=== PATIENT | male | born 1975 | race Caucasian/White ===

== ENCOUNTER → 2017-08-20 | Outpatient (CLI) | payer BC | LOC: PT 08:51 | DX: Z01.818 Encounter for other preprocedural examination (principal); M25.552 Pain in left hip ==

== ENCOUNTER 2017-11-11 16:00 | Outpatient (RCR) | payer BC | END 2017-11-25 | disposition home or self-care (01) | LOC: PT | DX: Z47.89 Encounter for other orthopedic aftercare (principal) ==

== ENCOUNTER 2018-05-20 08:30 | Outpatient (RCR) | payer BC | END 2018-05-20 09:00 | disposition home or self-care (01) | LOC: PT 08:30 | DX: S73.102D Unspecified sprain of left hip, subsequent encounter (principal) ==

== ENCOUNTER 2019-01-13 15:00 | Outpatient (RCR) | payer BC | END 2019-01-31 | disposition still patient (30) | LOC: PT | DX: M16.52 Unilateral post-traumatic osteoarthritis, left hip (principal) ==

== ENCOUNTER → 2019-08-11 | Outpatient (CLI) | payer OTHER ==
[2019-08-11 17:30] LABS: ALBUMIN 4.5 g/dL (3.5-5.0); POTASSIUM 4.5 mmol/L (3.5-5.1)
[2019-08-11 17:31] LABS: CALCIUM 9.6 mg/dL (8.3-10.5)
[2019-08-11 17:33] LABS: TOTAL PROTEIN 8.2 g/dL (6.4-8.3)
[2019-08-11 17:34] LABS: TOTAL BILIRUBIN 0.3 mg/dL (0.2-1.2)
[2019-08-11 17:43] LABS: EOS # 0.1 (0.04-0.40); HEMATOCRIT 45.5 % (42.0-52.0); HEMOGLOBIN 15.3 g/dL (13.5-18.0); LYMPH# 2.8 (1.50-4.00); MEAN CELL VOLUME 91 fl (78-100); MEAN CORPUSCULAR HEMOGLOBIN 31 pg (27-31); MEAN CORPUSCULAR HGB CONC 34 g/dL (33-37); MEAN PLATELET VOLUME 9.5 fl (7.4-10.4); NEU # 6.2 (1.40-6.50); PLATELET COUNT 345 K/mm3 (130-400); RED BLOOD COUNT 5.01 M/mm3 (4.20-5.60); RED CELL DISTRIBUTION WIDTH 13.4 % (11.5-14.5); WHITE BLOOD COUNT 10.1 K/mm3 (4.8-10.8)
== END ==
LOC: LAB 17:08
PROVIDERS: Family Medicine
DX: Z13.220 Encounter for screening for lipoid disorders (principal); M06.9 Rheumatoid arthritis, unspecified; I10 Essential (primary) hypertension

== ENCOUNTER → 2020-01-02 | Outpatient (CLI) | payer OTHER | LOC: RAD 14:10 | DX: R06.00 Dyspnea, unspecified (principal) ==

== ENCOUNTER → 2020-02-21 | Outpatient (CLI) | payer OTHER | LOC: RAD 12:51 | DX: M51.36 Other intervertebral disc degeneration, lumbar region (principal); M43.16 Spondylolisthesis, lumbar region; M47.816 Spondylosis without myelopathy or radiculopathy, lumbar region ==

== ENCOUNTER 2020-05-22 10:42 | Emergency (ER) | payer OTHER ==
[~2020-05-22] VITALS: Ht 172.7 cm; Wt 102.3 kg
[2020-05-22] MEDS ORDERED: CEPHALEXIN500 M1 (11:18)
[2020-05-22] MEDS ORDERED: TRAMADOL 50 MG TAB (11:19)
[2020-05-22] MEDS ORDERED: TIZANIDINE HYDRO4 MG (11:21)
[2020-05-22] MEDS ORDERED: ATORVASTATIN CA40 MG (11:22)
[2020-05-22] MEDS ORDERED: INDDOCIN (11:23)
[2020-05-22] MEDS ORDERED: TRIAMCINOLONE A15 G3 (11:24)
[2020-05-22] MEDS ORDERED: XELJANZ XR11 MG (11:26)
[2020-05-22 11:27] LABS: HEMATOCRIT 45.3 % (42.0-52.0); MEAN CELL VOLUME 90 fl (78-100); MEAN CORPUSCULAR HEMOGLOBIN 30 pg (27-31); MEAN CORPUSCULAR HGB CONC 33 g/dL (33-37); MEAN PLATELET VOLUME 9.5 fl (7.4-10.4); PLATELET COUNT 346 K/mm3 (130-400); RED BLOOD COUNT 5.04 M/mm3 (4.20-5.60); RED CELL DISTRIBUTION WIDTH 13.4 % (11.5-14.5); WHITE BLOOD COUNT 15.2 K/mm3 (4.8-10.8)
[2020-05-22] MEDS ORDERED: LISINOPRIL10 MG PO (11:27)
[2020-05-22] MEDS ORDERED: HYDROCHLOROTH12.5 M2 PO (11:28)
[2020-05-22] MEDS ORDERED: SULFAZINE EC500 MG PO (11:28)
[2020-05-22] MEDS ORDERED: AMOXICILLIN 50500 MG (11:30)
[2020-05-22] MEDS ORDERED: PROAIR HFA0.09 MG/AC IH (11:30)
[2020-05-22 11:38] LABS: ALBUMIN 4.4 g/dL (3.5-5.0)
[2020-05-22 11:39] LABS: POTASSIUM 3.7 mmol/L (3.5-5.1)
[2020-05-22 11:40] LABS: CALCIUM 9.9 mg/dL (8.3-10.5)
[2020-05-22 11:48] LABS: LYMPHOCYTE 7 % (20-51); MONOCYTE 8 % (3-10); NEUTROPHILS 85 % (42-75)
[2020-05-22 12:40] LABS: ERYTHROCYTE SEDIMENTATION RATE 101 mm/hr (0-15)
[2020-05-22 13:27] VITALS: BP 134/89
== END 2020-05-22 13:34 | disposition short-term general hospital (02) ==
LOC: ED 10:42
PROVIDERS: Physician Assistant
DX: M43.6 Torticollis (principal); D72.829 Elevated white blood cell count, unspecified; R51 Headache; M06.9 Rheumatoid arthritis, unspecified; M54.5 Low back pain; G89.29 Other chronic pain; Z79.891 Long term (current) use of opiate analgesic; Z96.642 Presence of left artificial hip joint; Z98.890 Other specified postprocedural states
CPT/HCPCS: J1885; J2270

== ENCOUNTER → 2020-06-03 | Outpatient (CLI) | payer OTHER ==
[2020-06-02 17:00] VITALS: BP 124/94
[~2020-06-03] MED LIST: AMOXICILLIN 50500 MG; ATORVASTATIN CA40 MG; CEPHALEXIN500 M1; HYDROCHLOROTH12.5 M2 PO; INDDOCIN; LISINOPRIL10 MG PO; PROAIR HFA0.09 MG/AC IH; SULFAZINE EC500 MG PO; TIZANIDINE HYDRO4 MG; TRAMADOL 50 MG TAB; TRIAMCINOLONE A15 G3; XELJANZ XR11 MG
[2020-06-03 17:30] LABS: HEMATOCRIT 40.8 % (42.0-52.0); HEMOGLOBIN 13.6 g/dL (13.5-18.0); MEAN PLATELET VOLUME 9.4 fl (7.4-10.4); RED BLOOD COUNT 4.57 M/mm3 (4.20-5.60); RED CELL DISTRIBUTION WIDTH 12.7 % (11.5-14.5); WHITE BLOOD COUNT 7.9 K/mm3 (4.8-10.8)
[2020-06-03 17:40] LABS: ALBUMIN 4.1 g/dL (3.5-5.0); POTASSIUM 3.8 mmol/L (3.5-5.1)
[2020-06-03 17:42] LABS: CALCIUM 9.3 mg/dL (8.3-10.5)
[2020-06-03 17:43] LABS: TOTAL PROTEIN 8.2 g/dL (6.4-8.3)
[2020-06-03 17:45] LABS: TOTAL BILIRUBIN 0.3 mg/dL (0.2-1.2)
== END ==
LOC: LAB 17:20
DX: G06.2 Extradural and subdural abscess, unspecified (principal); Z79.2 Long term (current) use of antibiotics

== ENCOUNTER → 2020-06-10 | Outpatient (CLI) | payer OTHER ==
[2020-06-09 17:10] VITALS: BP 125/84
[2020-06-10 17:11] LABS: HEMATOCRIT 41.6 % (42.0-52.0); HEMOGLOBIN 13.9 g/dL (13.5-18.0); MEAN PLATELET VOLUME 9.5 fl (7.4-10.4); RED BLOOD COUNT 4.67 M/mm3 (4.20-5.60); WHITE BLOOD COUNT 7.6 K/mm3 (4.8-10.8)
[2020-06-10 17:19] LABS: ALBUMIN 4.1 g/dL (3.5-5.0); POTASSIUM 3.9 mmol/L (3.5-5.1)
[2020-06-10 17:20] LABS: CALCIUM 9.4 mg/dL (8.3-10.5)
[2020-06-10 17:22] LABS: TOTAL PROTEIN 8.2 g/dL (6.4-8.3)
[2020-06-10 17:23] LABS: TOTAL BILIRUBIN 0.3 mg/dL (0.2-1.2)
== END ==
LOC: LAB 16:52
PROVIDERS: Internal Medicine Infectious Disease
DX: G06.2 Extradural and subdural abscess, unspecified (principal); Z79.899 Other long term (current) drug therapy

== ENCOUNTER → 2020-06-17 | Outpatient (CLI) | payer OTHER ==
[2020-06-16 16:53] VITALS: BP 112/75
[2020-06-17 17:18] LABS: HEMATOCRIT 40.9 % (42.0-52.0); HEMOGLOBIN 13.6 g/dL (13.5-18.0); MEAN PLATELET VOLUME 9.8 fl (7.4-10.4); RED BLOOD COUNT 4.6 M/mm3 (4.20-5.60); RED CELL DISTRIBUTION WIDTH 13.1 % (11.5-14.5); WHITE BLOOD COUNT 7.9 K/mm3 (4.8-10.8)
[2020-06-17 17:20] LABS: ALBUMIN 4.1 g/dL (3.5-5.0)
[2020-06-17 17:21] LABS: CALCIUM 9.4 mg/dL (8.3-10.5)
[2020-06-17 17:24] LABS: TOTAL BILIRUBIN 0.3 mg/dL (0.2-1.2)
== END ==
LOC: LAB 16:47
PROVIDERS: Internal Medicine Infectious Disease
DX: Z79.899 Other long term (current) drug therapy (principal)

== ENCOUNTER → 2020-06-24 | Outpatient (CLI) | payer OTHER ==
[2020-06-23 16:51] VITALS: BP 117/83
[2020-06-24 17:28] LABS: HEMATOCRIT 39.9 % (42.0-52.0); HEMOGLOBIN 13.4 g/dL (13.5-18.0); MEAN PLATELET VOLUME 9.8 fl (7.4-10.4); RED BLOOD COUNT 4.5 M/mm3 (4.20-5.60); RED CELL DISTRIBUTION WIDTH 13.3 % (11.5-14.5); WHITE BLOOD COUNT 7.3 K/mm3 (4.8-10.8)
[2020-06-24 17:34] LABS: POTASSIUM 3.6 mmol/L (3.5-5.1)
[2020-06-24 17:35] LABS: CALCIUM 9.2 mg/dL (8.3-10.5)
[2020-06-24 17:36] LABS: TOTAL PROTEIN 7.3 g/dL (6.4-8.3)
[2020-06-24 17:38] LABS: TOTAL BILIRUBIN 0.3 mg/dL (0.2-1.2)
== END ==
LOC: LAB 16:55
PROVIDERS: Internal Medicine Infectious Disease
DX: Z79.899 Other long term (current) drug therapy (principal)

== ENCOUNTER → 2020-07-01 | Outpatient (CLI) | payer OTHER ==
[2020-06-30 17:23] VITALS: BP 134/67
[2020-07-01 17:04] LABS: HEMATOCRIT 41.8 % (42.0-52.0); MEAN PLATELET VOLUME 9.7 fl (7.4-10.4); RED BLOOD COUNT 4.7 M/mm3 (4.20-5.60); RED CELL DISTRIBUTION WIDTH 13.3 % (11.5-14.5); WHITE BLOOD COUNT 8.8 K/mm3 (4.8-10.8)
[2020-07-01 17:13] LABS: ALBUMIN 4.2 g/dL (3.5-5.0); POTASSIUM 3.8 mmol/L (3.5-5.1)
[2020-07-01 17:14] LABS: CALCIUM 9.2 mg/dL (8.3-10.5)
[2020-07-01 17:15] LABS: TOTAL PROTEIN 7.8 g/dL (6.4-8.3)
[2020-07-01 17:17] LABS: TOTAL BILIRUBIN 0.3 mg/dL (0.2-1.2)
== END ==
LOC: LAB 16:47
PROVIDERS: Internal Medicine Infectious Disease
DX: G06.2 Extradural and subdural abscess, unspecified (principal); Z79.899 Other long term (current) drug therapy

== ENCOUNTER 2020-07-04 15:02 | Outpatient (RCR) | payer OTHER ==
[2020-05-28 15:40] VITALS: BP 127/83
[2020-05-29 17:00] VITALS: BP 140/82
[2020-05-30 17:17] VITALS: BP 130/86
[2020-05-31 17:00] VITALS: BP 111/79
[2020-06-01 17:20] VITALS: BP 131/86
[2020-06-02 17:00] VITALS: BP 124/94
[2020-06-03 17:24] VITALS: BP 129/93
[2020-06-04 17:17] VITALS: BP 129/94
[2020-06-05 17:14] VITALS: BP 120/82
[2020-06-06 17:11] VITALS: BP 117/85
[2020-06-07 17:08] VITALS: BP 119/86
[2020-06-08 17:01] VITALS: BP 126/79
[2020-06-09 17:10] VITALS: BP 125/84
[2020-06-10 15:45] VITALS: BP 124/87
[2020-06-10 16:59] VITALS: BP 124/87
[2020-06-11 17:06] VITALS: BP 133/86
[2020-06-11 17:36] VITALS: BP 132/82
[2020-06-12 17:18] VITALS: BP 113/86
[2020-06-12 17:51] VITALS: BP 138/80
[2020-06-13 16:58] VITALS: BP 137/91
[2020-06-14 17:08] VITALS: BP 122/81
[2020-06-15 19:07] VITALS: BP 124/89
[2020-06-15 19:50] VITALS: BP 117/83
[2020-06-16 16:53] VITALS: BP 112/75
[2020-06-17 17:11] VITALS: BP 135/72
[2020-06-17 17:36] VITALS: BP 124/75
[2020-06-18 17:30] VITALS: BP 113/81
[2020-06-19 16:54] VITALS: BP 120/83
[2020-06-20 17:10] VITALS: BP 120/68
[2020-06-21 17:36] VITALS: BP 124/66
[2020-06-21 18:11] VITALS: BP 125/69
[2020-06-22 16:50] VITALS: BP 138/72
[2020-06-23 16:51] VITALS: BP 117/83
[2020-06-24 17:00] VITALS: BP 121/94
[2020-06-25 19:35] VITALS: BP 117/79
[2020-06-25 20:30] VITALS: BP 114/77
[2020-06-26 17:20] VITALS: BP 123/78
[2020-06-26 18:06] VITALS: BP 134/80
[2020-06-27 17:00] VITALS: BP 131/64
[2020-06-28 16:54] VITALS: BP 122/82
[2020-06-29 16:55] VITALS: BP 125/75
[2020-06-29 17:42] VITALS: BP 113/86
[2020-06-30 17:05] VITALS: BP 120/86
[2020-06-30 17:23] VITALS: BP 134/67
[2020-07-01 16:50] VITALS: BP 121/91
[2020-07-01 18:36] VITALS: BP 121/91
[2020-07-02 18:05] VITALS: BP 132/85
[2020-07-03 17:03] VITALS: BP 121/84
[~2020-07-04] VITALS: Ht 172.7 cm; Wt 102.3 kg
[2020-07-04 15:00] VITALS: BP 121/83
== END 2020-07-04 18:00 | disposition home or self-care (01) ==
LOC: AMSURD 15:02
DX: G06.2 Extradural and subdural abscess, unspecified (principal); Z79.2 Long term (current) use of antibiotics
CPT/HCPCS: J0878; J1335

== ENCOUNTER → 2020-08-23 | Outpatient (CLI) | payer OTHER ==
[2020-08-23 12:11] LABS: ALBUMIN 4.4 g/dL (3.5-5.0)
[2020-08-23 12:14] LABS: HEMATOCRIT 45.9 % (42.0-52.0); HEMOGLOBIN 15.3 g/dL (13.5-18.0); MEAN PLATELET VOLUME 9.7 fl (7.4-10.4); RED BLOOD COUNT 5.16 M/mm3 (4.20-5.60); RED CELL DISTRIBUTION WIDTH 14.3 % (11.5-14.5); TOTAL PROTEIN 7.7 g/dL (6.4-8.3); WHITE BLOOD COUNT 8.8 K/mm3 (4.8-10.8)
[2020-08-23 12:15] LABS: TOTAL BILIRUBIN 0.3 mg/dL (0.2-1.2)
[2020-08-23 12:19] LABS: DIRECT BILIRUBIN 0.2 mg/dL (0.0-0.5)
== END ==
LOC: LAB 11:25
DX: Z51.81 Encounter for therapeutic drug level monitoring (principal); Z79.899 Other long term (current) drug therapy

== ENCOUNTER → 2021-01-22 | Outpatient (CLI) | payer OTHER | LOC: AMSURD 16:48 | DX: I10 Essential (primary) hypertension (principal) ==

== ENCOUNTER → 2021-01-22 | Outpatient (CLI) | payer OTHER ==
[2021-01-22 14:09] LABS: EOS # 0.1 (0.04-0.40); HEMATOCRIT 45.6 % (42.0-52.0); HEMOGLOBIN 14.8 g/dL (13.5-18.0); LYMPH# 1.5 (1.50-4.00); MEAN CELL VOLUME 91 fl (78-100); MEAN CORPUSCULAR HEMOGLOBIN 30 pg (27-31); MEAN CORPUSCULAR HGB CONC 33 g/dL (33-37); MEAN PLATELET VOLUME 9.6 fl (7.4-10.4); MONO # 0.8 (0.20-0.80); NEU # 5.9 (1.40-6.50); PLATELET COUNT 342 K/mm3 (130-400); RED BLOOD COUNT 5.02 M/mm3 (4.20-5.60); RED CELL DISTRIBUTION WIDTH 13.5 % (11.5-14.5); WHITE BLOOD COUNT 8.3 K/mm3 (4.8-10.8)
[2021-01-22 14:14] LABS: POTASSIUM 3.9 mmol/L (3.5-5.1)
[2021-01-22 14:15] LABS: CALCIUM 9.3 mg/dL (8.3-10.5)
[2021-01-22 14:23] LABS: PROTHROMBIN TIME 9.9 SECONDS (9.0-12.0)
[2021-01-22 14:31] LABS: URINE APPEARANCE CLEAR; URINE COLOR YELLOW; URINE PROTEIN(semi-quant) TRACE mg/dL (NEGATIVE)
[2021-01-22 14:32] LABS: URINE BILIRUBIN NEGATIVE (NEGATIVE); URINE BLOOD NEGATIVE (NEGATIVE); URINE GLUCOSE NEGATIVE (NEGATIVE); URINE KETONE NEGATIVE (NEGATIVE); URINE LEUKOCYTE ESTERASE NEGATIVE (NEGATIVE); URINE MUCUS PRESENT (NOT PRESENT); URINE NITRATE NEGATIVE (NEGATIVE); URINE UROBILINOGEN NORMAL (NORMAL)
== END ==
LOC: LAB 13:39
PROVIDERS: Family Medicine
DX: Z01.812 Encounter for preprocedural laboratory examination (principal)

== ENCOUNTER → 2021-01-25 | Outpatient (CLI) | payer OTHER ==
[2021-01-25 09:54] LABS: URINE APPEARANCE CLEAR; URINE BILIRUBIN NEGATIVE (NEGATIVE); URINE BLOOD NEGATIVE (NEGATIVE); URINE COLOR YELLOW; URINE LEUKOCYTE ESTERASE NEGATIVE (NEGATIVE); URINE NITRATE NEGATIVE (NEGATIVE); URINE UROBILINOGEN NORMAL (NORMAL)
[2021-01-29 10:39] LABS: PH-URINE 5.5 (5.0 - 8.0); URINE PROTEIN(semi-quant) NEGATIVE (NEGATIVE)
[2021-01-29 10:40] LABS: URINE GLUCOSE NEGATIVE (NEGATIVE); URINE KETONE NEGATIVE (NEGATIVE)
[2021-01-29 10:41] LABS: URINE MUCUS PRESENT (NOT PRESENT)
== END ==
LOC: LAB 08:48
PROVIDERS: Family Medicine
DX: Z01.812 Encounter for preprocedural laboratory examination (principal); R07.0 Pain in throat; Z20.822 Contact with and (suspected) exposure to COVID-19

== ENCOUNTER → 2021-01-27 | Outpatient (CLI) | payer OTHER | LOC: LAB 16:10 | DX: R81 Glycosuria (principal) ==